=== PATIENT | female | born 1960 | race Caucasian/White ===

== ENCOUNTER 2019-06-29 10:58 | Emergency (ER) | payer BC ==
[~2019-06-29] VITALS: Ht 167.6 cm; Wt 64.6 kg
[2019-06-29] MEDS ORDERED: iohexol 350MG/ML 100ml bottle IV ONE (12:36)
[2019-06-29 12:53] LABS: URINE AMPHETAMINE SCREEN NEGATIVE (Neg); URINE BARBITUATE SCREEN NEGATIVE (Neg); URINE BENZODIAZEPINES SCREEN NEGATIVE (Neg); URINE CANNABINOID SCREEN NEGATIVE (Neg); URINE COCAINE SCREEN NEGATIVE (Neg); URINE METHADONE SCREEN NEGATIVE (Neg); URINE OPIATE SCREEN NEGATIVE (Neg); URINE PHENCYCLIDINE SCREEN NEGATIVE (Neg)
[2019-06-29 13:01] LABS: BASOPHILS % (AUTO) 0.5 % (0-1); EOSINOPHILS # (AUTO) 0.1 X10'3 (0-0.9); EOSINOPHILS % (AUTO) 1.2 % (0-6); HEMATOCRIT 46.4 % (35.0-45.0); HEMOGLOBIN 15.7 g/dl (12.0-16.0); LYMPHOCYTES # (AUTO) 1.6 X10'3 (1.1-4.8); LYMPHOCYTES % (AUTO) 27.1 % (21-51); MEAN CORPUSCULAR HEMOGLOBIN 31.1 PG (27.0-31.0); MEAN CORPUSCULAR HGB CONC 33.9 g/dL (33.0-36.5); MEAN CORPUSCULAR VOLUME 91.7 FL (78-98); MEAN PLATELET VOLUME 7.7 FL (7.4-10.4); MONOCYTES # (AUTO) 0.5 X10'3 (0-0.9); MONOCYTES % (AUTO) 8.9 % (2-12); NEUTROPHILS # (AUTO) 3.7 X10'3 (1.8-7.7); NEUTROPHILS % (AUTO) 62.3 % (42-75); PLATELET COUNT 271 X10'3 (140-440); RED BLOOD COUNT 5.05 X10'6 (4.20-5.60); RED CELL DISTRIBUTION WIDTH 13.6 % (11.5-14.5); WHITE BLOOD COUNT 5.9 X10'3 (4.5-11.0)
[2019-06-29 13:09] LABS: PARTIAL THROMBOPLASTIN TIME 28 SECONDS (22-32)
[2019-06-29 13:11] LABS: ALANINE AMINOTRANSFERASE 18 U/L (12-78); ALKALINE PHOSPHATASE 82 IU/L (46-116); ANION GAP 7 (8-16); ASPARTATE AMINO TRANSFERASE 13 U/L (10-37); BILIRUBIN,TOTAL 0.5 MG/DL (0.1-1.0); BLOOD UREA NITROGEN 14 MG/DL (7-18); BUN/CREATININE RATIO 15.6 (6.6-38.0); CALCIUM 9.1 MG/DL (8.5-10.1); CHLORIDE 107 MMOL/L (99-107); GLUCOSE 93 MG/DL (70-104); POTASSIUM 3.9 MMOL/L (3.5-5.1); SODIUM 141 MMOL/L (135-145); TOTAL CARBON DIOXIDE 26.7 MMOL/L (24-32); TOTAL PROTEIN 7.9 G/DL (6.4-8.2); eGFR 64 ML/MIN
[2019-06-29] MEDS ORDERED: aspirin 81mg tab.chew PO ONE (18:10)
[2019-06-29] MEDS ORDERED: GABA-530 PO (18:28)
[2019-06-29] MEDS ORDERED: ACET-2119 PO (18:29)
--- NOTE | 2019-06-29 19:15 | NUR ---
Patient states she wants to go outside to smoke, patient educated on plan of care to wait for hospitalist to enter admission orders including nicotine patch if needed. Patient states "nope, I want to go now, take this thing out of me (points to IV)... I don't care if I need to stay, I can just go and see my primary Dr." Dr Petersen made aware, patient persists on leaving AMA. IV DC'd, catheter intact, father and daughter at bedside.
[2019-06-29 19:18] VITALS: BP 164/105
== END 2019-06-29 19:19 | disposition left against medical advice (07) ==
LOC: ER 10:59
DX: I63.9 Cerebral infarction, unspecified (principal); H53.2 Diplopia; I25.2 Old myocardial infarction; Z88.8 Allergy status to other drugs, medicaments and biological substances; Z79.899 Other long term (current) drug therapy
CPT/HCPCS: 36415; 70496; 70498; 80053; 80305; 85025; 85610; 85730; 99284; Q9967

== ENCOUNTER 2021-02-16 19:39 | Emergency (ER) | payer BC ==
[~2021-02-16] VITALS: Ht 165.1 cm; Wt 66.4 kg
[~2021-02-16 19:39] MED LIST: ACET-2119 PO; GABA-530 PO
[2021-02-16 20:10] VITALS: BP 150/86
== END 2021-02-17 00:16 | disposition left against medical advice (07) ==
LOC: ER 19:39
DX: M79.641 Pain in right hand (principal); Z53.21 Procedure and treatment not carried out due to patient leaving prior to being seen by health care provider
CPT/HCPCS: 73130